=== PATIENT | female | born 1975 | race Caucasian/White ===

== ENCOUNTER 2017-04-19 17:58 | Emergency (ER) | payer MEDICARE, MEDICAID ==
[2017-04-19] MEDS: KETOROLAC 30 MG/ML VIAL IVP ONE (18:49)
[2017-04-19] MEDS: 0.9 % SODIUM CHLORIDE 1000ML 1,000 ML IV SCH (18:49)
--- NOTE | 2017-04-19 18:49 | Emergency Department Record ---
History of Present Illness - General Chief complaint: Female Urogenital Problem Stated complaint: VAGINAL BLEEDING/CRAMPING Time Seen by Provider: 04/19/17 18:43 Source: Patient Mode of Arrival: Ambulatory Limitations: No limitations - History of Present Illness Initial comments: 42 yo female presents to ED for evaluation of hematuria that began yesterday in addition to suprapubic "cramping" pain that has been present for approximately 1 year following KATHLEEN with Dr. Yousif. Patient saw Dr. Yousif yesterday and was diagnosed with UTI, started on antibiotics. Patient was then called today and told that she did not have an infection, to stop her antibiotic, and to go to the ED for evaluation for possible kidney stone. Patient denies flank pain, nausea, vomiting, fevers, or chills. Patient denies health problems at her baseline. MD Complaint: Other (hematuria) Onset/Timin -: Days(s) Location: Suprapubic Radiation: Non-radiating Severity: Moderate Severity scale (1-10): 8 Quality: Cramping Consistency: Constant Improves with: None Worsens with: None Patient : No Associated Symptoms: Hematuria, Other - Related Data Home Medications Medication Instructions Recorded Confirmed Last Taken Duloxetine HCl [Cymbalta] 60 mg PO DAILY 04/19/17 04/19/17 04/19/17 Gabapentin [Neurontin] 300 mg PO TID 04/19/17 04/19/17 04/19/17 Previous Rx's Medication Instructions Recorded Hydrocodone/Acetaminophen [[place] 1 tab PO Q6H PRN #20 tab 01/26/15 5mg/325mg] Allergies Allergy/AdvReac Type Severity Reaction Status Date / Time No Known Drug Allergies Allergy Verified 04/19/17 18:32 Travel Screening - Travel/Exposure Within Last 30 Days Have you traveled within the last 30 days?: No - Travel/Exposure Within Last Year Have you traveled outside the [place] in the last year?: No - Additonal Travel Details Have you been exposed to anyone with a communicable illness?: No - Travel Symptoms Symptom Screening: None Review of Systems Constitutional: Denies: Chills, Fever, Malaise, Night sweats Eyes: Denies: Eye discharge, Eye pain ENT: Denies: Congestion, Ear pain, Epistaxis Respiratory: Denies: Cough, Dyspnea Cardiovascular: Denies: Chest pain, Dyspnea on exertion Endocrine: Denies: Fatigue, Heat or cold intolerance Gastrointestinal: Reports: Abdominal pain. Denies: Nausea, Vomiting Genitourinary: Reports: Hematuria. Denies: Incontinence, Retention Musculoskeletal: Denies: Arthralgia, Back pain, Gout, Joint swelling Skin: Denies: Bruising, Change in color Neurological: Denies: Abnormal gait, Confusion, Headache, Tingling Psychiatric: Denies: Anxiety Hematological/Lymphatic: Denies: Anemia, Blood Clots Past Medical History - SOCIAL HISTORY Smoking Status: Current every day smoker Alcohol Use: None Drug Use: None - RESPIRATORY Hx Respiratory Disorders: No - CARDIOVASCULAR Hx Cardio Disorders: No - NEURO Hx Neuro Disorders: No - GI Hx GI Disorders: No - Comment:: 15 ovarian cyst - ENDOCRINE Hx Diabetes: No Hx Thyroid Disease: No - MUSCULOSKELETAL Hx Arthritis: Yes Hx Back Injury: Yes - PSYCH Hx Depression: Yes - HEMATOLOGY/ONCOLOGY Hx Cancer: Yes (ovarian/cervical) Hx Chemotherapy: No Hx Radiation Therapy: No Family Medical History Any Significant Family History?: Yes Hx Cancer: Grandparents Physical Exam - General General Appearance: Alert, Oriented x3, Cooperative, Mild distress, Anxious Limitations: No limitations - Head Head exam: Atraumatic, Normocephalic, Normal inspection Head exam detail: negative: Abrasion, Contusion, Robison's sign, General tenderness, Hematoma, Laceration - Eye Eye exam: Normal appearance. negative: Conjunctival injection, Periorbital swelling, Periorbital tenderness, Scleral icterus - ENT Ear exam: negative: Auricular hematoma, Auricular trauma Nasal Exam: negative: Active bleeding, Discharge, Dried blood, Foreign body Mouth exam: negative: Drooling, Laceration, Tongue elevation - Neck Neck exam: Normal inspection. negative: Meningismus, Tenderness - Respiratory Respiratory exam: Normal lung sounds bilaterally. negative: Respiratory distress, Rhonchi, Stridor, Wheezes - Cardiovascular Cardiovascular Exam: Regular rate, Normal rhythm, Normal heart sounds - GI/Abdominal GI/Abdominal exam: Soft, Tenderness (TTP suprapubic region, no rebound or guarding present). negative: Organomegaly, Pulsatile mass, Rebound, Rigid - Rectal Rectal exam: Deferred - exam: Deferred - Extremities Extremities exam: Normal inspection. negative: Pedal edema, Tenderness - Back Back exam: Denies: CVA tenderness (R), CVA tenderness (L) - Neurological Neurological exam: Alert, Normal gait, Oriented X3 - Psychiatric Psychiatric exam: Anxious - Skin Skin exam: Normal color. negative: Abrasion Type of lesion: negative: abrasion Course Vital Signs 04/19/17 18:36 Temperature 98.3 F Pulse Rate 91 H Respiratory 20 Rate Blood Pressure 117/84 Pulse Ox 96 - Reevaluation(s) Reevaluation #1: 04/19/17 19:52 Labs reviewed and are grossly unremarkable for an acute process. US demonstrates 0-2 RBCs, no signs of infection. CT imaging is pending. Reevaluation #2: 04/19/17 20:27 CT Abdomen and Pelvis: Distention of the gallbladder, no acute obstructive uropathy is present. Patient was updated on all results which appear negative for kidney stone as the etiology of her hematuria symptoms, recommended follow-up with Dr. Whiitng for possible ultrasound for ongoing suprapubic pain symptoms. Patient appears stable for discharge at this time. Medical Decision Making - Lab Data Result diagrams: 04/19/17 18:58 04/19/17 18:58 Disposition Disposition: Discharge Clinical Impression: Chronic pelvic pain in female Hematuria Qualifiers: Hematuria type: unspecified type Qualified Code(s): R31.9 - Hematuria, unspecified Disposition: Home, Self-Care Condition: (2) Stable Instructions: Pelvic Pain in Women (ED) Additional Instructions: Return to ED if your symptoms worsen or if you have any concerns. Follow-up with Dr. Whiting in 3-5 days as directed for further evaluation of your pelvic pain symptoms. Forms: Patient Portal Access Time of Disposition: 20:29 Quality - Quality Measures Quality Measures: N/A - Blood Pressure Screening Does Patient Have Any of the Following: No Blood Pressure Classification: Normal BP Reading Systolic Measurement: 111 Diastolic Measurement: 50 Screening for High Blood Pressure: < Normal BP, F/U Not Required > [G8783]
[2017-04-19 19:05] LABS: URINE APPEARANCE CLEAR; URINE BILIRUBIN NEGATIVE (NEGATIVE); URINE BLOOD SMALL (NEGATIVE); URINE COLOR YELLOW; URINE GLUCOSE (UA) NEGATIVE (NEGATIVE); URINE KETONE NEGATIVE (NEGATIVE); URINE LEUKOCYTE ESTERASE TRACE (NEGATIVE); URINE NITRITE NEGATIVE (NEGATIVE); URINE PROTEIN NEGATIVE (NEGATIVE); URINE UROBILINOGEN 0.2 E.U./dL (0.20 - 1.00)
[2017-04-19 19:08] LABS: BASO % 0.4 % (0-6); EOS % 3.4 % (0-6); GRAN % 61.6 % (47-80); HEMATOCRIT 41.7 % (35.0-47.0); LYMPH % 24.8 % (16-45); MEAN CELL VOLUME 94.6 fl (81-97); MEAN CORPUSCULAR HEMOGLOBIN 31.7 pg (27-33); MEAN CORPUSCULAR HGB CONC 33.6 g/dl (32-36); MEAN PLATELET VOLUME 10.8 fl (7.4-10.4); MONO % 9.8 % (0-9); PLATELET COUNT 274 K/uL (130-400); RED BLOOD COUNT 4.41 M/uL (3.80-5.40); RED CELL DISTRIBUTION WIDTH 13.3 % (11.5-14.5); WHITE BLOOD COUNT W/O DIFF 7.3 K/uL (4.2-12.2)
[2017-04-19 19:15] LABS: URINE BACTERIA FEW; URINE EPITHELIAL CELLS 0 - 2 (FEW); URINE RBC 0 - 2 (NONE SEEN)
[2017-04-19 19:25] LABS: ALB/GLOB RATIO 1.1 (1.1-1.8); ALKALINE PHOSPHATASE 94 U/L (35-104); ALT/SGPT 25 U/L (<33); AST/SGOT 19 U/L (10.0-35.0); BLOOD UREA NITROGEN 10 mg/dL (6-20); CREATININE 0.6 mg/dL (0.5-0.9); EST GLOMERULAR FILTRATION RATE > 60 mL/min; GLUCOSE,RANDOM 121 mg/dL (74-109); LIPASE 26 U/L (13-60); TOTAL PROTEIN 7.6 g/dL (6.6-8.7)
--- NOTE | 2017-04-21 16:38 | CT SCAN REPORT ---
EXAM: CT SCAN ABDOMEN/PELVIS WO CONTRAST HISTORY: LOWER ABDOMINAL PAIN. TECHNIQUE: Sequential axial images were obtained from the diaphragms through the ischiorectal fossa without intravenous or oral contrast administration. FINDINGS: The visualized lung bases appear normal. The liver appears normal. There is mild distention of the gallbladder. No gallstones are appreciated. No ductal dilatation. Pancreas, spleen, adrenal glands, and kidneys appear normal. The small bowel appears normal. The appendix is visualized and appears normal. The urinary bladder appears normal. The colon appears normal. IMPRESSION: 1. NO ACUTE ABDOMINAL OR PELVIC DISEASE PROCESS. 2. MILD GALLBLADDER DISTENTION. NO GALLSTONES OR DUCTAL DILATATION. JOB NUMBER: [id number] MTDD
== END 2017-04-19 20:42 | disposition home or self-care (01) ==
LOC: ER 17:58
DX: G89.29 Other chronic pain (principal); R10.2 Pelvic and perineal pain; R31.0 Gross hematuria
CPT/HCPCS: 99284 ×2; 96374; 83690; 85025; 80053; 81001; 74176; J1885; J7030

== ENCOUNTER 2017-07-10 00:57 | Emergency (ER) | payer MEDICARE, MEDICAID ==
[2017-07-10] MEDS ORDERED: ASPIRIN 325 MG TABLET PO ONE (01:15)
--- NOTE | 2017-07-10 01:15 | Emergency Department Record ---
History of Present Illness - General Chief complaint: Pain Stated complaint: L SIDED RIB PAIN Time Seen by Provider: 07/10/17 01:08 Source: Patient - History of Present Illness Initial comments: The patient states that she has had left sided chest pain beneath her left breast for over a week. She is a daily smoker. she states the pain gets worse with coughing and deep breathing. She first thought it was because she bruised her chest a week ago on the left side, but about 3-4 hours ago it significantly worsened in severity and caused her to have nausea with some shortness of breath. She denies fevers, chills, or productive cough but admits to a cough that does not bring up anything. She admits to drinking shots of "fireballs" tonight and does use marijuana. She has chronic left flank and lower abdominal pain which is not why she came here tonight. She denies history of SC, PE, DVT. - Related Data Previous Rx's Medication Instructions Recorded Hydrocodone/Acetaminophen [[place] 1 tab PO Q6H PRN #20 tab 01/26/15 5mg/325mg] Allergies Allergy/AdvReac Type Severity Reaction Status Date / Time No Known Drug Allergies Allergy Verified 04/19/17 18:32 Review of Systems Reviewed: No additional complaints except as noted below Constitutional: Reports: As per HPI. Denies: Chills, Fever, Malaise, Night sweats, Weakness, Weight change Eyes: Reports: As per HPI. Denies: Eye discharge, Eye pain, Photophobia, Vision change ENT: Reports: As per HPI. Denies: Congestion, Dental pain, Ear pain, Epistaxis , Hearing loss, Throat pain Respiratory: Reports: As per HPI. Denies: Cough, Dyspnea, Hemoptysis, Stridor, Wheezes Cardiovascular: Reports: As per HPI. Denies: Arrhythmia, Chest pain, Dyspnea on exertion, Edema, Murmurs, Orthopnea, Palpitations, Paroxysmal nocturnal dyspnea, Rheumatic Fever, Syncope Endocrine: Reports: As per HPI. Denies: Fatigue, Heat or cold intolerance, Polydipsia, Polyuria Gastrointestinal: Reports: As per HPI. Denies: Abdominal pain, Constipation, Diarrhea, Hematemesis, Hematochezia, Melena, Nausea, Vomiting Genitourinary: Reports: As per HPI. Denies: Abnormal menses, Discharge, Dyspareunia, Dysuria, Frequency, Hematuria, Incontinence, Retention, Urgency Musculoskeletal: Reports: As per HPI. Denies: Arthralgia, Back pain, Gout, Joint swelling, Myalgia, Neck pain Skin: Reports: As per HPI. Denies: Bruising, Change in color, Change in hair/ nails, Lesions, Pruritus, Rash Neurological: Reports: As per HPI. Denies: Abnormal gait, Confusion, Headache, Numbness, Paresthesias, Seizure, Tingling, Tremors, Vertigo, Weakness Psychiatric: Reports: As per HPI. Denies: Anxiety, Auditory hallucinations, Depression, Homicidal thoughts, Suicidal thoughts, Visual hallucinations Hematological/Lymphatic: Reports: As per HPI. Denies: Anemia, Blood Clots, Easy bleeding, Easy bruising, Swollen glands Past Medical History - SOCIAL HISTORY Smoking Status: Current every day smoker Drug Use: None - RESPIRATORY Hx Respiratory Disorders: No Hx Pneumonia: Yes - CARDIOVASCULAR Hx Cardio Disorders: No - NEURO Hx Neuro Disorders: No - GI Hx GI Disorders: No - Comment:: 15 ovarian cyst - ENDOCRINE Hx Diabetes: No Hx Thyroid Disease: No - MUSCULOSKELETAL Hx Arthritis: Yes Hx Back Injury: Yes - PSYCH Hx Depression: Yes - HEMATOLOGY/ONCOLOGY Hx Cancer: Yes (ovarian/cervical) Hx Chemotherapy: No Hx Radiation Therapy: No Family Medical History Hx Cancer: Grandparents Physical Exam - General General Appearance: Alert, Oriented x3, Cooperative, Mild distress (with coughing intermittently on deep breath which increases her pain), Anxious - Head Head exam: Normal inspection - Eye Eye exam: Normal appearance, PERRL Pupils: Normal accommodation - ENT ENT exam: Normal exam, Mucous membranes moist, Normal external ear exam, Normal orophraynx, TM's normal bilaterally Ear exam: Normal external inspection. negative: External canal tenderness Nasal Exam: Normal inspection. negative: Discharge, Sinus tenderness Mouth exam: Normal external inspection, Tongue normal Teeth exam: Normal inspection. negative: Dental caries Throat exam: Normal inspection. negative: Tonsillar erythema, Tonsillar exudate - Neck Neck exam: Normal inspection, Full ROM. negative: Tenderness - Respiratory Respiratory exam: Chest wall tenderness (beneath lateral left breast), Decreased breath sounds, Prolonged expiratory. negative: Respiratory distress - Cardiovascular Cardiovascular Exam: Regular rate, Normal rhythm, Normal heart sounds - GI/Abdominal GI/Abdominal exam: Soft, Normal bowel sounds. negative: Tenderness - Rectal Rectal exam: Deferred - exam: Deferred - Extremities Extremities exam: Normal inspection, Full ROM, Normal capillary refill. negative: Tenderness - Back Back exam: Reports: Normal inspection, Full ROM. Denies: Muscle spasm, Rash noted, Tenderness - Neurological Neurological exam: Alert, Normal gait, Oriented X3, Reflexes normal - Psychiatric Psychiatric exam: Normal affect, Normal mood - Skin Skin exam: Dry, Intact, Normal color, Warm Course - Reevaluation(s) Reevaluation #1: After her breathing treatment the patient was more comfortable. She is up to the bathroom to give a urine. On further exam she is tender on her left lower lateral ribs without crepitus or sub Q emphysema as well as LUQ abdominal tenderness. Will order a noncontrast abdominal CT with attention to the left lower ribs. Her speech and gait are normal despite some alcohol on her breath when she arrived. 07/10/17 02:18 Reevaluation #2: Discussing results with patient. Re-exam of chest wall shows no shingles or lesions. Patient and person with her states they wish to leave immediately and drive to [facility] to be seen. They do not wish the ordered medications given or their treatment completed but will sign out AMA. "Will go to [facility] where they have the equipment." AMA form signed. 07/10/17 03:11 07/10/17 03:12 07/10/17 03:15 Medical Decision Making - Management Options MDM Management: Additional Work-up Planned (e.g. ADM/Transfer/OP Study) (left AMA) - Data Complexity MDM Data: EKG Ordered and/or Reviewed - Lab Data Result diagrams: 07/10/17 01:25 07/10/17 01:25 - EKG Data -: EKG Interpreted by Me EKG: No Acute Changes (No prior ) Disposition Clinical Impression: Left-sided chest wall pain Disposition: Against Medical Advice Additional Instructions: Patient understands risks of leaving AMA and is welcome to return for further recommended evaluation. Forms: Patient Portal Access Quality - Quality Measures Quality Measures: N/A - Blood Pressure Screening Does Patient Have Any of the Following: No Blood Pressure Classification: Normal BP Reading Systolic Measurement: 105 Diastolic Measurement: 63 Screening for High Blood Pressure: < Normal BP, F/U Not Required > [G8783]
[2017-07-10] MEDS: NITROGLYCERIN 0.4MG SL TABLET #25 BTL SL PRN ×2 (01:28→01:33)
[2017-07-10 01:42] LABS: BASO % 0.4 % (0-6); EOS % 3.6 % (0-6); GRAN % 50.1 % (47-80); HEMATOCRIT 40.2 % (35.0-47.0); LYMPH % 34.4 % (16-45); MEAN CELL VOLUME 95.9 fl (81-97); MEAN CORPUSCULAR HGB CONC 32.3 g/dl (32-36); MEAN PLATELET VOLUME 10.6 fl (7.4-10.4); MONO % 11.5 % (0-9); PLATELET COUNT 266 K/uL (130-400); RED BLOOD COUNT 4.19 M/uL (3.80-5.40); RED CELL DISTRIBUTION WIDTH 13.2 % (11.5-14.5)
[2017-07-10] MEDS ORDERED: IPRATROPIUM/ALBUTEROL (0.5MG/3MG) NEB INH ONE (01:42)
[2017-07-10 01:51] LABS: BLOOD UREA NITROGEN 12 mg/dL (6-20); CREATININE 0.6 mg/dL (0.5-0.9); EST GLOMERULAR FILTRATION RATE > 60 mL/min
[2017-07-10 01:52] LABS: TOTAL PROTEIN 7.1 g/dL (6.6-8.7)
[2017-07-10 01:54] LABS: GLUCOSE,RANDOM 139 mg/dL (74-109)
[2017-07-10 01:57] LABS: ALB/GLOB RATIO 1.2 (1.1-1.8); ALBUMIN 3.9 g/dL (4.0-5.0); ALKALINE PHOSPHATASE 96 U/L (35-104); ALT/SGPT 26 U/L (<33); AST/SGOT 17 U/L (10.0-35.0)
[2017-07-10 01:58] LABS: INR 0.96; PROTHROMBIN TIME (PATIENT) 10.4 SECONDS (9.5-12.1)
[2017-07-10 02:02] LABS: ALCOHOL 0.069 g/dL (0-0.010)
[2017-07-10] MEDS ORDERED: KETOROLAC 30 MG/ML VIAL IVP ONE (02:07)
[2017-07-10 02:14] LABS: THYROID STIMULATING HORMONE 9.85 uIU/mL (0.270-4.20)
[2017-07-10 02:23] LABS: AMPHETAMINE SCREEN URINE NOT DETECTED; BARBITURATE SCREEN URINE NOT DETECTED; BENZODIAZEPINE SCREEN URINE NOT DETECTED; COCAINE SCREEN URINE NOT DETECTED; METHADONE SCREEN URINE NOT DETECTED; METHAMPHETAMINE SCREEN NOT DETECTED; OPIATE SCREEN URINE NOT DETECTED; OXYCODONE SCREEN URINE NOT DETECTED; PHENCYCLIDINE SCREEN URINE NOT DETECTED; PROPOXYPHENE SCREEN URINE NOT DETECTED; THC SCREEN URINE DETECTED; TRICYCLIC ANTIDEPRESSANT SCRN NOT DETECTED
[2017-07-10] MEDS ORDERED: POTASSIUM CHLORIDE 20 MEQ TABLET PO ONE (02:24)
[2017-07-10] MEDS ORDERED: ORPHENADRINE CITRATE 60MG/2ML VIAL IVP ONE (03:06)
[2017-07-10 03:10] LABS: URINE APPEARANCE CLEAR; URINE BILIRUBIN NEGATIVE (NEGATIVE); URINE BLOOD TRACE-I (NEGATIVE); URINE COLOR YELLOW; URINE GLUCOSE (UA) NEGATIVE (NEGATIVE); URINE KETONE NEGATIVE (NEGATIVE); URINE LEUKOCYTE ESTERASE NEGATIVE (NEGATIVE); URINE NITRITE NEGATIVE (NEGATIVE); URINE PROTEIN NEGATIVE (NEGATIVE); URINE UROBILINOGEN 0.2 E.U./dL (0.20 - 1.00)
[2017-07-10 03:23] LABS: URINE BACTERIA FEW; URINE SQUAMOUS EPITHELIAL CELL 0 - 2 /hpf; URINE WBC 0 - 2 (0-2/hpf)
--- NOTE | 2017-07-11 07:31 | CT SCAN REPORT ---
EXAM: CT SCAN OF THE ABDOMEN AND PELVIS WITHOUT CONTRAST HISTORY: LEFT UPPER QUADRANT ABDOMINAL PAIN AND LEFT LOWER RIB PAIN. NO KNOWN INJURY. SYMPTOMS FOR THE PAST TWO WEEKS. TECHNIQUE: Standard CT imaging of the abdomen and pelvis was performed without contrast. Additional coronal and sagittal reformatted images were also performed. Comparison: 04/19/17. FINDINGS: There is mild dependent atelectasis at both lung bases. There is mild fatty infiltration of the liver. There are no focal hepatic abnormalities. The gallbladder is mildly distended, but unchanged from the prior study. There are no surrounding inflammatory changes. There is no biliary ductal dilatation. The pancreas, spleen, and adrenal glands are normal. The kidneys and ureters are unremarkable. The aorta is normal in caliber. There is no retroperitoneal lymphadenopathy. The stomach and epigastrium are normal. The large and small bowel loops including the appendix are normal. There is no pneumoperitoneum or ascites. The uterus is surgically absent. The urinary bladder is unremarkable. There are no acute osseous abnormalities. Degenerative changes are present within the lumbar spine. The abdominal wall is normal. IMPRESSION: 1. NO ACUTE INTRAABDOMINAL PATHOLOGY. 2. MILD HEPATIC STEATOSIS. JOB NUMBER: [id number] [facility]
== END 2017-07-10 03:15 | disposition left against medical advice (07) ==
LOC: ER 00:57
DX: R07.89 Other chest pain (principal); R06.02 Shortness of breath; R05 Cough; R10.12 Left upper quadrant pain; R11.0 Nausea; F17.210 Nicotine dependence, cigarettes, uncomplicated
CPT/HCPCS: 74176; 80053; 80305; 80320; 81001; 81025; 83605; 84443; 84484; 85025; 85379; 85610; 85730; 93005; 93010; 94640; 96374; 99284; J1885